=== PATIENT | female | born 1990 | race Caucasian/White ===

== ENCOUNTER 2017-01-08 14:56 | Emergency (ER) | payer SELFPAY ==
[2017-01-08 15:02] VITALS: BP 104/60; PULSE 79; TEMP 98.1; BMI 23.0
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
[2017-01-08] MEDS ORDERED: diazePAM 5 MG TABLET PO STA (15:55)
[2017-01-08] MEDS ORDERED: KETOROLAC TROMETHAMINE 60 MG/2 ML VIAL IM ONE (15:55)
[2017-01-08] MEDS ORDERED: diazePAM 5 MG TABLET ONE (15:57)
[2017-01-08] MEDS ORDERED: KETOROLAC TROMETHAMINE 60 MG/2 ML VIAL ONE (15:57)
[2017-01-08 16:02] LABS: URINE APPEARANCE CLEAR; URINE BILIRUBIN NEGATIVE (NEGATIVE); URINE BLOOD NEGATIVE (NEGATIVE); URINE COLOR LTYELLOW; URINE GLUCOSE (UA) NEGATIVE (NEGATIVE); URINE KETONE NEGATIVE (NEGATIVE); URINE LEUK ESTERASE NEGATIVE (NEGATIVE); URINE NITRITE NEGATIVE (NEGATIVE); URINE PROTEIN NEGATIVE (NEGATIVE); URINE UROBILINOGEN NEGATIVE E.U./dl (0.2-1.0)
== END 2017-01-08 16:42 | disposition home or self-care (01) ==
LOC: JERFT 14:56
PROC: 3E0233Z Introduction of Anti-inflammatory into Muscle, Percutaneous Approach (ICD-10-PCS; principal; 2017-01-08)
DX: M54.5 Low back pain (principal)
CPT/HCPCS: 72070-TC; 72100-TC; 81003; 84703; 99281-25

== ENCOUNTER 2019-08-21 02:19 | Emergency (ER) | payer OTHER ==
[2019-08-21 02:32] VITALS: BP 109/68; PULSE 87; TEMP 98.7; BMI 25.7
--- NOTE | 2019-08-21 03:26 | PDOC ---
History of Present Illness - General Chief Complaint: Pain Stated Complaint: PELVIC PAIN, 13 WKS Time Seen by Provider: 08/21/19 03:25 - History of Present Illness Initial Comments: HPI: 29yo currently 13 weeks (LMP 05/03/2019) with no reported PMH presenting with lower abdominal pain. Patient reports her pain started around 5am and occurs intermittently. She called her barrel finisher group and was instructed to go the ED if the pain did not improve. 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 Denies urinary symptoms. No nausea or vomiting. Had a bowel movement yesterday that was a normal formed brown stool. Patient has had an ultrasound during this that showed an intrauterine and heartbeat. She has not taken anything for pain because she is afraid of taking something that is not prescribed by a physician. History of surgeries include laparoscopic appendectomy. No fever, but endorses chills. pen tender[facility] ROS: Constitutional: no fever, +chills HEENT: no throat pain, no dysphagia Cardiovascular: no chest pain, no palpitations Respiratory: no cough, no shortness of breath Gastrointestinal: +abdominal pain, no nausea Genitourinary: no dysuria, no hematuria Musculoskeletal: no myalgia, no arthralgia Skin: no rash, no itching Neurologic: no headache, no weakness Psych: no agitation, no anxiety PE: General: Awake, alert, and fully oriented, in no acute distress Head: No signs of trauma Eyes: EOMI, sclera anicteric ENT: Moist mucus membranes Neck: Normal ROM, supple Lungs: Lungs clear, Normal breath sounds Cardio: Regular rhythm, S1 and S2 present Abdomen: Soft, nontender. No guarding, no rebound, no masses. No CVA tenderness Extremities: Normal range of motion, Distal pulses present SKIN: Warm, Dry, normal turgor Neurologic: Cranial nerves II through XII grossly intact. Normal speech Pelvic: External genitalia without erythema, exudate or discharge. Vaginal vault is without discharge. There is no bleeding noted. Uterus is noted to be of appropriate size and nontender. Benefit Director, Nurse Pineda, present during entire pelvic exam ED Course/MDM: DDX including but not limited to threatened , ectopic , subchorionic hemorrhage, UTI Labs TVUS Tylenol 08/21/19 03:26 CBC WBC 8.2 K/mm3 (4.0-10.0) 08/21/19 03:50 RBC 4.00 M/mm3 (3.60-5.2) 08/21/19 03:50 Hgb 12.4 GM/dL (10.7-15.3) 08/21/19 03:50 Hct 35.5 % (32.4-45.2) 08/21/19 03:50 MCV 88.8 fl (80-96) 08/21/19 03:50 MCH 30.9 pg (25.7-33.7) 08/21/19 03:50 MCHC 34.9 g/dl (32.0-36.0) 08/21/19 03:50 RDW 13.8 % (11.6-15.6) 08/21/19 03:50 Plt Count 197 K/MM3 (134-434) 08/21/19 03:50 MPV 9.6 fl (7.5-11.1) 08/21/19 03:50 Absolute Neuts (auto) 5.7 K/mm3 (1.5-8.0) 08/21/19 03:50 Neutrophils % 69.2 % (42.8-82.8) 08/21/19 03:50 Lymphocytes % 22.3 % (8-40) 08/21/19 03:50 Monocytes % 6.8 % (3.8-10.2) 08/21/19 03:50 Eosinophils % 1.2 % (0-4.5) 08/21/19 03:50 Basophils % 0.5 % (0-2.0) 08/21/19 03:50 Nucleated RBC % 0 % (0-0) 08/21/19 03:50 No leukocytosis 08/21/19 04:47 CMP Sodium 137 mmol/L (136-145) 08/21/19 03:50 Potassium 3.8 mmol/L (3.5-5.1) 08/21/19 03:50 Chloride 109 mmol/L (98-107) H 08/21/19 03:50 Carbon Dioxide 22 mmol/L (21-32) 08/21/19 03:50 Anion Gap 7 MMOL/L (8-16) L 08/21/19 03:50 BUN 8.0 mg/dL (7-18) 08/21/19 03:50 Creatinine 0.6 mg/dL (0.55-1.3) 08/21/19 03:50 Est GFR (CKD-EPI)AfAm 142.76 08/21/19 03:50 Est GFR (CKD-EPI)NonAf 123.17 08/21/19 03:50 Random Glucose 85 mg/dL (74-106) 08/21/19 03:50 Calcium 8.2 mg/dL (8.5-10.1) L 08/21/19 03:50 Total Bilirubin 0.3 mg/dL (0.2-1) 08/21/19 03:50 AST 18 U/L (15-37) 08/21/19 03:50 ALT 21 U/L (13-61) 08/21/19 03:50 Alkaline Phosphatase 53 U/L (45-117) 08/21/19 03:50 Total Protein 6.8 g/dl (6.4-8.2) 08/21/19 03:50 Albumin 2.9 g/dl (3.4-5.0) L 08/21/19 03:50 Beta HCG, Quant 26995.5 mIU/ml 08/21/19 03:50 Electrolytes unremarkable Cr normal No transamintiis B-hcg 04219.5 which is consistent with dates Bedside Transabdominal US showed movement and heartbeat 08/21/19 05:[address] Patient signed out to Dr. Ortega and day team 08/21/19 07:25 Past History - Past Medical History Allergies/Adverse Reactions: Allergies Allergy/AdvReac Type Severity Reaction Status Date / Time iodine Allergy Verified 08/21/19 02:28 Home Medications: Ambulatory Orders Diazepam [Valium] 5 mg PO Q8H PRN #12 tablet MDD 15mg 01/08/17 Naproxen [Naprosyn -] 500 mg PO BID PRN #28 tablet 01/08/17 traMADol HCL [Ultram] 50 mg PO Q6H PRN #12 tablet MDD 200MG 01/08/17 - Psycho Social/Smoking Cessation Hx Smoking History: Never smoked Hx Alcohol Use: No Drug/Substance Use Hx: No *Physical Exam - Vital Signs Last Vital Signs Temp Pulse Resp BP Pulse Ox 98.7 F 87 18 109/68 96 08/21/19 02:24 08/21/19 02:24 08/21/19 02:24 08/21/19 02:24 08/21/19 02:24 ED Treatment Course - LABORATORY CBC & Chemistry Diagram: 08/21/19 03:50 08/21/19 03:50 Discharge - Discharge Information Problems reviewed: Yes Clinical Impression/Diagnosis: Pelvic pain during Condition: Stable Disposition: HOME - Follow up/Referral Referrals: Vitor Maciel MD [Staff Physician] - Ezio Mueller MD [Staff Physician] - - Patient Discharge Instructions Patient Printed Discharge Instructions: DI for Threatened Additional Instructions: You were seen in the Emergency Department for pelvic pain during . Lab work was within normal limits. An ultrasound showed a in the uterus with a heartbeat. Follow-up with your barrel finisher within 72 hours. Your workup is not complete until you do so. Return to the Emergency Department if you experience: -heavy bleeding (more than two pads per hour for two hours) -severe pain -lightheadedness -shortness of breath -high fever -any other concerning symptoms - Post Discharge Activity Work/Back to School Note: Back to Work
--- NOTE | 2019-08-21 03:42 | PDOC ---
Attending Attestation - Resident Resident Name: Lelo Langston - ED Attending Attestation I have performed the following: I have examined & evaluated the patient, The case was reviewed & discussed with the resident, I agree w/resident's findings & plan - HPI HPI: 08/21/19 06:02 see resident hpi - Physicial Exam PE: 08/21/19 06:02 see resident exam - Medical Decision Making 08/21/19 06:02 29-year-old gravid female with pelvic pain Labs including urinalysis pending Will sign out morning ultrasound to dayshift
[2019-08-21] MEDS ORDERED: ACETAMINOPHEN 325 MG TABLET (FP) PO ONE (03:47)
[2019-08-21] MEDS ORDERED: ACETAMINOPHEN 325 MG TABLET (FP) ONE (04:29)
[2019-08-21 04:35] LABS: BASO % 0.5 % (0-2.0); EOS % 1.2 % (0-4.5); HEMATOCRIT 35.5 % (32.4-45.2); HEMOGLOBIN 12.4 GM/dL (10.7-15.3); LYMPH % 22.3 % (8-40); MCH 30.9 pg (25.7-33.7); MCHC 34.9 g/dl (32.0-36.0); MEAN CELL VOLUME 88.8 fl (80-96); MEAN PLT VOLUME 9.6 fl (7.5-11.1); MONO % 6.8 % (3.8-10.2); NEUT % 69.2 % (42.8-82.8); PH,URINE 6.5 (5.0-8.0); PLATELET COUNT 197 K/MM3 (134-434); RDW 13.8 % (11.6-15.6); URINE APPEARANCE CLEAR; URINE BILIRUBIN NEGATIVE (NEGATIVE); URINE COLOR YELLOW; URINE GLUCOSE (UA) NEGATIVE (NEGATIVE); URINE KETONE NEGATIVE (NEGATIVE); URINE LEUK ESTERASE NEGATIVE (NEGATIVE); URINE NITRITE NEGATIVE (NEGATIVE); URINE PROTEIN NEGATIVE (NEGATIVE); URINE UROBILINOGEN 0.2 mg/dL (0.2-1.0); WHITE BLOOD COUNT 8.2 K/mm3 (4.0-10.0)
[2019-08-21 04:54] LABS: ALBUMIN 2.9 g/dl (3.4-5.0); CALCIUM 8.2 mg/dL (8.5-10.1); POTASSIUM 3.8 mmol/L (3.5-5.1)
[2019-08-21 04:58] LABS: CREATININE 0.6 mg/dL (0.55-1.3); TOT PROT 6.8 g/dl (6.4-8.2)
[2019-08-21 05:03] LABS: BILIRUBIN,TOTAL 0.3 mg/dL (0.2-1)
--- NOTE | 2019-08-21 08:23 | PDOC ---
*Physical Exam - Vital Signs Last Vital Signs Temp Pulse Resp BP Pulse Ox 98.7 F 87 18 109/68 96 08/21/19 02:24 08/21/19 02:24 08/21/19 02:24 08/21/19 02:24 08/21/19 02:24 ED Treatment Course - LABORATORY CBC & Chemistry Diagram: 08/21/19 03:50 08/21/19 03:50 - ADDITIONAL ORDERS Additional order review: Laboratory Results 08/21/19 08/21/19 08/21/19 03:50 03:50 03:50 Sodium 137 Potassium 3.8 Chloride 109 H Carbon Dioxide 22 Anion Gap 7 L BUN 8.0 Creatinine 0.6 Est GFR (CKD-EPI)AfAm 142.76 Est GFR (CKD-EPI)NonAf 123.17 Random Glucose 85 Calcium 8.2 L Total Bilirubin 0.3 AST 18 ALT 21 Alkaline Phosphatase 53 Total Protein 6.8 Albumin 2.9 L Beta HCG, Quant 78202.5 Urine Color Yellow Urine Appearance Clear Urine pH 6.5 D Ur Specific [place] 1.019 Urine Protein Negative Urine Glucose (UA) Negative Urine Ketones Negative Urine Blood Negative Urine Nitrite Negative Urine Bilirubin Negative Urine Urobilinogen 0.2 Ur Leukocyte Esterase Negative Blood Type B POSITIVE Antibody Screen Negative 08/21/19 03:50 RBC 4.00 MCV 88.8 MCHC 34.9 RDW 13.8 MPV 9.6 Neutrophils % 69.2 Lymphocytes % 22.3 Monocytes % 6.8 Eosinophils % 1.2 Basophils % 0.5 - Medications Given in the ED: ED Medications Discontinued Medications Generic Name Dose Route Start Last Admin Trade Name Freq PRN Reason Stop Dose Admin Acetaminophen 975 mg 08/21/19 03:47 08/21/19 04:34 Tylenol - PO 08/21/19 03:48 975 mg ONCE ONE Administration Medical Decision Making - Medical Decision Making 08/21/19 08:22 Well-appearing no apparent distress benign abdominal examination as to follow- up ultrasound ultrasound with positive IUP approximately 14 weeks Patient struck to follow-up with her FACULTY PHYSICIAN this week Findings, need for follow-up and strict return instructions discussed with patient. Discharge - Discharge Information Problems reviewed: Yes Clinical Impression/Diagnosis: Pelvic pain during Condition: Stable Disposition: HOME - Admission No - Follow up/Referral Referrals: Vitor Maciel MD [Staff Physician] - Ezio Mueller MD [Staff Physician] - - Patient Discharge Instructions Patient Printed Discharge Instructions: DI for Threatened Additional Instructions: You were seen in the Emergency Department for pelvic pain during . Lab work was within normal limits. An ultrasound showed a in the uterus with a heartbeat. Follow-up with your oncologist within 72 hours. Your workup is not complete until you do so. Return to the Emergency Department if you experience: -heavy bleeding (more than two pads per hour for two hours) -severe pain -lightheadedness -shortness of breath -high fever -any other concerning symptoms - Post Discharge Activity Work/Back to School Note: Back to Work
== END 2019-08-21 08:30 | disposition home or self-care (01) ==
LOC: JER 02:19
DX: O26.891 Other specified pregnancy related conditions, first trimester (principal); Z3A.13 13 weeks gestation of pregnancy; R10.2 Pelvic and perineal pain; Z88.8 Allergy status to other drugs, medicaments and biological substances
CPT/HCPCS: 36415; 76815; 80053; 81003; 84702; 85025; 86850; 86900; 86901; 87086; 99284-25

== ENCOUNTER 2020-03-28 18:11 | Emergency (ER) | payer OTHER ==
[2020-03-28 18:25] VITALS: BP 98/63; PULSE 76; TEMP 98.4; BMI 25.7
[2020-03-28] MEDS ORDERED: KETOROLAC TROMETHAMINE 60 MG/2 ML VIAL IM ONE (18:58)
[2020-03-28] MEDS ORDERED: LIDOCAINE 5% TOPICAL PATCH TP ONE (18:58)
[2020-03-28] MEDS ORDERED: LIDOCAINE 5% TOPICAL PATCH ONE (18:58)
[2020-03-28] MEDS ORDERED: KETOROLAC TROMETHAMINE 30 MG/1 ML VIAL ONE (18:58)
== END 2020-03-28 20:08 | disposition home or self-care (01) ==
LOC: JER 18:11
PROC: 3E0233Z Introduction of Anti-inflammatory into Muscle, Percutaneous Approach (ICD-10-PCS; principal; 2020-03-28)
DX: M25.551 Pain in right hip (principal)
CPT/HCPCS: 73523-TC-FY; 99284-25